=== PATIENT | female | born 1960 | race Caucasian/White ===

== ENCOUNTER → 2017-05-17 | Outpatient (CLI) | payer BC, OTHER ==
--- NOTE | 2017-05-17 10:58 | DI ---
CERVICAL SPINE SERIES, 05/17/2017 10:06 AM: Clinical History: Neck pain. Previous Exam: 02/11/2015. Upright AP and lateral and upright lateral flexion and extension views are submitted. The vertebral b odies are normal in height and size. There is disc space narrowing at C5-6 and C6-7 with anterior and posterior bony proliferative change at C5-6. 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 C1 articulates normally with C2 and the occiput. Prevertebral soft tissue planes are n ormal. Readin. There is disc space narrowing at C5-6 and C6-7 with evidence of instability with motion at C4-5 w hich has not changed since the prior exam. 2. 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 Degenerative arthritic changes are present in the uncovertebral joints bilaterally at C5-6. 3. Overall, there has been no significant change.
== END ==
LOC: ORTHO 11:13
PROVIDERS: ATTEND Physician Assistant
DX: M54.2 Cervicalgia (principal); M47.22 Other spondylosis with radiculopathy, cervical region; M48.02 Spinal stenosis, cervical region
CPT/HCPCS: 72050